=== PATIENT | female | born 1980 | race Caucasian/White ===

== ENCOUNTER → 2023-12-13 12:35 | Outpatient (REF) | payer OTHER, SELFPAY | LOC: HWWDC 12:35 | PROVIDERS: ATTENDING PHYSICIAN Obstetrics & Gynecology; FAMILY PHYSICIAN Internal Medicine | DX: Z12.31 Encounter for screening mammogram for malignant neoplasm of breast (principal) | CPT/HCPCS: 77063; 77067 ==

== ENCOUNTER 2024-07-13 20:27 | Emergency (ER) | payer OTHER, SELFPAY ==
[2024-07-13 20:30] VITALS: BP 114/68
--- NOTE | 2024-07-13 23:22 | ED.SKININJ ---
HPI-Injury
General
Chief Complaint: Skin Problem
Source: patient
Exam Limitations: none
Time Seen by Provider: 07/13/24 23:02
History of Present Illness-Injury
Initial Injury comments:
44-year-old female presents with persistent infection to the left side of her neck started about a week ago. It was swollen she was getting drainage to come out of it. She notes persistent pain. No fevers body aches myalgias. No chills. No
other complaints at this time
Phy Exam
Physical Exam
Physical Exam:
General: Well-appearing female no acute respiratory distress
Skin: Edema lesion left side of neck without fluctuance but there is overlying crust formation. This measures about 1/2 cm x 2 cm. This is slightly tender. No vesicles no
Extremities: No cyanosis
Course
Orders/Labs/Results
Orders:
Orders
07/13/24 23:17
Doxycycline [Vibramycin] 100 mg PO NOW STA
Vital Signs
Initial and Last Documented VS:
Initial Vital Signs
Temp Pulse Resp BP Pulse Ox
98.3 F 85 20 114/68 99
07/13/24 20:30 07/13/24 20:30 07/13/24 20:30 07/13/24 20:30 07/13/24 20:30
Last Documented Vital Signs
Temp Pulse Resp BP Pulse Ox
98.3 F 85 20 114/68 99
07/13/24 20:30 07/13/24 20:30 07/13/24 20:30 07/13/24 20:30 07/13/24 20:30
MDM/Problems Addressed
Differential Diagnosis Includes:
Infection left side of neck. No sign of abscess. Consider cellulitis. No vesicles to suggest shingles. Question possible staph or strep involvement. There are some crust on the lesion and impetigo could be a consideration. Will start on
doxycycline. Recommended keeping it covered otherwise. Stable for discharge
Considered incision and drainage but not indicated at this time
Chronic conditions affecting care:
None
*Critical Care Note
Total Time (30-74mins, 75-104mins- exclusive of procedures): Not Applicable
ED Attending Note
-
Portions of this chart may have been created with voice recognition software.� Occasional wrong word or��sound alike� substitutions may have occurred due to the inherent limitations of voice recognition software.
Discharge Plan
Departure
Patient Disposition: Home (Routine Discharge)
Date of Disposition: 07/13/24
Time of Disposition: 23:26
Patient with high blood pressure during this ER visit?: No
Discharge Problem:
Cellulitis
Instructions: Cellulitis (Skin Infection), Adult (DC)
Prescriptions:
New
doxycycline hyclate 100 mg capsule
100 mg PO BID Qty: 14 0RF
Activity Restrictions/Additional Instructions:
Take antibiotics as directed. Keep covered. Return if needed otherwise.
Interventions
Interventions:
*Risk Screen - Suicide Last Done: 07/13/24 20:30
*General Assessment Last Done: 07/13/24 20:30
*Neglect/Abuse Screening Last Done: 07/13/24 20:30
Discharge Date and Time
Print Language: ROMANIAN
[2024-07-13] MEDS: VIBRAMYCIN 100 MG PO (23:39)
[2024-07-13 23:41] VITALS: BP 98/63
== END 2024-07-13 23:44 | disposition home or self-care (01) ==
LOC: EMR 20:27
PROVIDERS: EMERGENCY PHYSICIAN Emergency Medicine
DX: L03.221 Cellulitis of neck (principal)
CPT/HCPCS: 99283

== ENCOUNTER 2024-07-19 13:32 | Emergency (ER) | payer OTHER, SELFPAY ==
[2024-07-19 13:34] VITALS: BP 103/65
--- NOTE | 2024-07-19 13:55 | ED.GENMED ---
History of Present Illness
General
Chief Complaint: Skin Problem
Source: patient
Time Seen by Provider: 07/19/24 13:43
History of Present Illness
History of Present Illness:
44yoF with no significant past medical history presenting for evaluation of a rash. The rash is located on the left side of her neck and initially started about 2 weeks ago. Patient states it first looked like a pimple and then she developed what
appeared to be a cluster of pimples. She reports fluid filled bubbles that drained clear fluid at one point. She was seen in the ED on 07/13/24 for these symptoms and she was started on doxycycline for possible cellulitis. Patient is on day 6 of her
antibiotics and she has not noticed any improvement. She reports that the area is painful but not itchy. She denies any fevers, chills, body aches. No new products or exposure to similar rash. No insect bites or history of IVDU.
Phy Exam
General Physical Exam
General Presentation: well appearing and no apparent distress
General age: appears stated age
General Skin: warm and dry
General Habitus: normal
General Mental: alert
ENT Exam
ENT Exam: pharynx normal, neck supple and normocephalic
Pulmonary Exam
Pulmonary Exam: no respiratory distress
[place] Coma Scale
Eye Opening: Spontaneous
Verbal Response: Oriented
Motor Response: Obeys Commands
GCS Total Score: 15
Skin Exam
Skin Exam: warm/dry and other (Central scab noted to the L neck with a small outline of erythema that is blanchable. There is also a scattered red circular maculopapular rash surrounding the central area of scabbing. No drainage, fluctuance, or
signs of infection noted on exam. )
Psychiatric Exam
Psychiatric Exam: normal mood/affect
Course
Vital Signs
Initial and Last Documented VS:
Initial Vital Signs
Temp Pulse Resp BP Pulse Ox
98.2 F 91 16 103/65 100
07/19/24 13:34 07/19/24 13:34 07/19/24 13:34 07/19/24 13:34 07/19/24 13:34
Last Documented Vital Signs
Temp Pulse Resp BP Pulse Ox
98.2 F 91 16 103/65 100
07/19/24 13:34 07/19/24 13:34 07/19/24 13:34 07/19/24 13:34 07/19/24 13:34
MDM/Problems Addressed
Differential Diagnosis Includes:
44yoF here with a L neck rash x 2 weeks. Started as a 'cluster of pimples' that drained clear fluid. Currently on doxycycline without improvement. No fevers/chills or systemic symptoms. She is afebrile and hemodynamically stable. She is well
appearing in no distress. There is a scabbed area with a surrounding red maculopapular rash on exam. Rash is localized to the L neck and appears consistent with herpes zoster. No clinical evidence of superimposed cellulitis.
Although she is well over the 72 hour aicha, will still cover her with Valtrex. She was advised to f/u with PCP and dermatology. ED return precautions discussed. She was discharged in stable condition.
*Critical Care Note
Total Time (30-74mins, 75-104mins- exclusive of procedures): Not Applicable
ED Attending Note
-
Portions of this chart may have been created with voice recognition software.� Occasional wrong word or��sound alike� substitutions may have occurred due to the inherent limitations of voice recognition software.
Discharge Plan
Departure
Patient Disposition: Home (Routine Discharge)
Date of Disposition: 07/19/24
Time of Disposition: 14:07
Patient with high blood pressure during this ER visit?: No
Discharge Problem:
Herpes zoster
Instructions: Shingles
Prescriptions:
New
valacyclovir [Valtrex] 1 gram tablet
1,000 mg PO Q8H 7 Days Qty: 21 0RF
No Action
doxycycline hyclate 100 mg capsule
100 mg PO BID Qty: 14 0RF
Activity Restrictions/Additional Instructions:
Take Valtrex as prescribed.
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 Return to the ER with any worsening symptoms or fevers.
Interventions
Interventions:
*Risk Screen - Suicide Last Done: 07/19/24 13:33
*General Assessment Last Done: 07/19/24 13:34
*Neglect/Abuse Screening Last Done: 07/19/24 13:34
*Nursing Disposition Last Done: 07/19/24 14:23
ED-Skin Assessment Last Done: 07/19/24 14:05
Discharge Date and Time
Discharge Date/Time: 07/19/24 14:24
Print Language: OCCITAN
== END 2024-07-19 14:24 | disposition home or self-care (01) ==
LOC: EMR 13:32
PROVIDERS: EMERGENCY PHYSICIAN Emergency Medicine
DX: B02.9 Zoster without complications (principal)
CPT/HCPCS: 99282

== ENCOUNTER → 2024-12-15 18:39 | Outpatient (REF) | payer OTHER, SELFPAY | LOC: WDC 18:39 | PROVIDERS: ATTENDING PHYSICIAN Obstetrics & Gynecology | DX: Z12.31 Encounter for screening mammogram for malignant neoplasm of breast (principal) | CPT/HCPCS: 77063; 77067 ==

== ENCOUNTER 2025-03-06 06:20 | Day surgery (SDC) | payer OTHER, SELFPAY | END 2025-03-06 16:08 | disposition home or self-care (01) | LOC: GI 06:20 | PROVIDERS: ATTENDING PHYSICIAN Internal Medicine Gastroenterology | DX: Z12.11 Encounter for screening for malignant neoplasm of colon (principal); Z80.0 Family history of malignant neoplasm of digestive organs; D12.4 Benign neoplasm of descending colon | CPT/HCPCS: 45385; 88305 ==

== ENCOUNTER → 2025-11-04 07:50 | Outpatient (REF) | payer OTHER, SELFPAY | LOC: HWRAD 07:50 | PROVIDERS: ATTENDING PHYSICIAN Obstetrics & Gynecology; FAMILY PHYSICIAN Internal Medicine | DX: N93.9 Abnormal uterine and vaginal bleeding, unspecified (principal) | CPT/HCPCS: 76830; 76856 ==